=== PATIENT | female | born 2000 | race Caucasian/White ===

== ENCOUNTER 2019-12-08 13:30 | Emergency (ER) | payer MEDICAID ==
[~2019-12-08] VITALS: Ht 162.6 cm; Wt 67.6 kg
[2019-12-08 13:53] VITALS: BP 108/76
[2019-12-08] MEDS ORDERED: IBUPROFEN 600 MG TABLET PO ONE ×2 (14:53→15:00)
--- NOTE | 2019-12-08 15:00 | NUR ---
Seen by Dr. Kaufman, ordered elastic wrist splint.
--- NOTE | 2019-12-08 15:15 | NUR ---
Patient discharged to home in stable condition. Written and verbal after care instructions given. Patient verbalizes understanding of instruction.
== END 2019-12-08 15:29 | disposition home or self-care (01) ==
LOC: ER 13:30
DX: M67.431 Ganglion, right wrist (principal)

== ENCOUNTER → 2024-12-14 | Emergency (ER) | payer MEDICAID, OTHER ==
[~2024-12-14] VITALS: Ht 175.3 cm; Wt 106.6 kg
[2024-12-14 22:10] VITALS: BP 135/84; TEMP 98; O2SAT 98
== END | disposition left against medical advice (07) ==
LOC: ER 21:54 → EDSEX 21:54
DX: M79.644 Pain in right finger(s) (principal); M79.18 Myalgia, other site; Z53.21 Procedure and treatment not carried out due to patient leaving prior to being seen by health care provider